=== PATIENT | female | born 2005 | race Caucasian/White ===

== ENCOUNTER 2023-04-18 09:55 | Emergency (ER) | payer OTHER ==
[~2023-04-18] VITALS: Ht 154.9 cm; Wt 64.9 kg
[~2023-04-18 09:55] MED LIST: AUGMENTIN 875-875 MG PO; BIRTH CONTROL PILL PO; CEFADROXIL500 M1 PO; CEPHALEXIN500 M1 PO; PREDNISONE20 M1 PO
[2023-04-18 10:59] LABS: BASO % 0.4 % (0.0-1.0); EOS # 0.1 10*3/uL (0.0-0.4); EOS % 1.2 % (1.0-4.0); HEMATOCRIT 38.2 % (37.0-47.0); LYMPH # 1.2 10*3/uL (1.3-4.4); MEAN CELL VOLUME 89.3 fl (81.0-99.0); MEAN CORPUSCULAR HGB 30.8 pg (27.0-31.0); MEAN CORPUSCULAR HGB CONC 34.6 g/dl (33.0-37.0); MEAN PLATELET VOLUME 10.4 fl (9.6-12.3); MONO # 0.4 10*3/uL (0.1-1.0); MONO % 4.7 % (3.0-9.0); NEUT # 5.8 10*3/uL (2.3-7.9); NEUT % 77.4 % (47.0-73.0); PLATELET COUNT AUTOMATED 227 10*3/uL (130-400); RED BLOOD COUNT 4.28 10*6/uL (4.10-5.10); RED CELL DISTRI WIDTH 12.3 % (0-14.5); WHITE BLOOD COUNT 7.5 10*3/uL (4.8-10.8)
[2023-04-18 10:59] LABS: BILIRUBIN Negative (Negative); BLOOD 2+ (Negative); CLARITY Clear (Clear); COLOR Yellow (Yellow); GLUCOSE Negative (Negative); KETONE Trace (Negative); LEUKO ESTERASE 1+ (Negative); NITRITE Negative (Negative); PH 7.5 (4.5-8.0); SPECIFIC GRAVITY 1.025 (1.001-1.030)
[2023-04-18 11:13] LABS: BACTERIA 3+; EPITHELIAL CELLS 16-20; MUCOUS 1+
[2023-04-18 11:30] LABS: ALKALINE PHOSPHATASE 65 U/L (46-116); BUN 6 mg/dl (9-23); CHLORIDE 106 mmol/L (98-107); LIPASE 27 U/L (12-53); POTASSIUM 3.6 mmol/L (3.4-5.1); SGPT/ALT 17 U/L (10-49); TOTAL PROTEIN 7.4 gm/dL (6.0-8.0)
[2023-04-18] MEDS ORDERED: CEPHALEXIN500 M1 PO (12:25)
== END 2023-04-18 12:45 | disposition home or self-care (01) ==
LOC: ED 09:55
PROVIDERS: Emergency Medicine
DX: Z33.1 Pregnant state, incidental (principal)

== ENCOUNTER 2024-06-02 17:40 | Emergency (ER) | payer OTHER ==
[~2024-06-02] VITALS: Ht 154.9 cm; Wt 77.1 kg
[2024-06-02 18:30] LABS: BILIRUBIN 1+ (Negative); BLOOD Trace-Lysed (Negative); CLARITY Cloudy (Clear); COLOR Orange (Yellow); GLUCOSE Negative (Negative); KETONE Negative (Negative); LEUKO ESTERASE 3+ (Negative); NITRITE Positive (Negative)
[2024-06-02 18:38] LABS: BACTERIA 1+; FINE GRANULAR CAST 0-2; MUCOUS 1+; WBC 41-50 wbc/hpf (0-5)
[2024-06-02] MEDS ORDERED: CEPHALEXIN500 M1 PO (18:51)
== END 2024-06-02 18:59 | disposition home or self-care (01) ==
LOC: ED 17:40
PROVIDERS: Nurse Practitioner Family
DX: O23.31 Infections of other parts of urinary tract in pregnancy, first trimester (principal); N39.0 Urinary tract infection, site not specified; Z3A.00 Weeks of gestation of pregnancy not specified

== ENCOUNTER 2025-03-05 13:46 | Emergency (ER) | payer OTHER ==
[~2025-03-05] VITALS: Ht 154.9 cm; Wt 78.0 kg
[2025-03-05] MEDS ORDERED: FLUCONAZOLE 100 MG TAB PO ONE (15:55)
[2025-03-05] MEDS ORDERED: Sulfamethoxazole/Trimethopri 1 TAB TAB PO ONE (15:55)
[2025-03-05] MEDS ORDERED: ACETAMINOPHEN 325 MG/10.15 ML UDC PO ONE (16:00)
[2025-03-05] MEDS ORDERED: CEPHALEXIN 500 MG CAP PO ONE (16:00)
[2025-03-05] MEDS ORDERED: CEPHALEXIN500 M1 PO (16:09)
[2025-03-05] MEDS ORDERED: NYSTATIN CREAM15 GM T (16:09)
[2025-03-05] MEDS ORDERED: FLUCONAZOLE100 MG PO (16:09)
[2025-03-05] MEDS ORDERED: ACETAMINOPHEN 325 MG TAB PO ONE (16:20)
== END 2025-03-05 16:13 | disposition home or self-care (01) ==
LOC: ED 13:46
DX: N61.0 Mastitis without abscess (principal); Z79.899 Other long term (current) drug therapy